=== PATIENT | male | born 1940 | race Caucasian/White ===

== ENCOUNTER 2021-03-13 21:28 | Emergency (ER) | payer OTHER, SELFPAY ==
[2021-03-13 21:29] VITALS: BP 162/68; PULSE 76; RESP 18; TEMP 36.2; O2SAT 99; BMI 30.4
--- NOTE | 2021-03-13 21:54 | EDS_ITS ---
HPI History of Present Illness Chief Complaint: Lower Extremity Injury Narrative Narrative: 80-year-old male presenting with left calf swelling. He states he does not have a history of DVT. He denies any trauma. He states he has not been bedridden or immobilized. He is not on anticoagulation. He denies any trauma. He is not having chest pain, shortness of breath. He denies fever or chills. He denies numbness or tingling. He does admit to pain when ambulating [facility] Medical History Heart attack Home Medications NK 03/13/21 [History Last Taken Unknown] Allergy/AdvReac Type Severity Reaction Status Date / Time No Known Allergies Allergy Verified 03/13/21 21:31 Surgical History Stented coronary artery Social History Smoking Status: Never smoker ROS ROS ED Constitutional Constitutional ED: Denies chills or fever(s) Eyes Eyes: Denies blurry vision or change in vision ENT ENT ED: Denies rhinorrhea or sore throat Cardiovascular Cardiovascular: Denies chest pain or palpitations Respiratory/Chest Respiratory/Chest: Denies cough or dyspnea Gastrointestinal Gastrointestinal: Denies abdominal pain or nausea Genitourinary Genitourinary ED: Denies dysuria or hematuria Musculoskeletal Musculoskeletal: Reports other Details: Left calf pain and swelling Integumentary Denies abscess or rash Neurologic Neurologic: Denies headache(s) or weakness EXAM Physical Exam Const Vital Signs: 03/13/21 21:29 Temperature 97.1 F L Temperature Source Temporal Pulse Rate 76 Respiratory Rate 18 Blood Pressure 162/68 H Blood Pressure Mean 99 Pulse Ox 99 Positive well nourished General Appearance ED: NAD HEENT normocephalic and atraumatic Resp normal respiratory effort and clear to auscultation bilaterally Cardio regular rate and regular rhythm Extremity Extremity Narrative: Left calf swelling. Mild erythema and warmth. Mildly tender to palpation. No crepitance. Left foot neurovascular intact prescription filled all 5 toes. Neuro oriented x3 Sensorium / Orientation: alert Psych mental status grossly normal Skin Skin Narrative: As described above MDM MDM MDM Narrative Medical decision making narrative: Patient presented with left calf pain. Does have some mild posterior left knee pain. There is some swelling in his region. There is no sign of cellulitis. I did obtain a DVT study which shows a popliteal cyst of the left knee measuring 5.6 cm. There is no DVT. Patient counseled on ice, elevation, compression. He will follow-up with his PCP. He states he is currently getting steps with a new PCP could be has his retired. He has the paperwork and will arrange this. Patient's over discharge. Impression: 1. Villegas's cyst left knee Radiography Diagnostic Testing: Clinical Impression(s) from Imaging Studies Venous Duplex 03/13/21 21:55 IMPRESSION: Popliteal cyst of the left knee region measures up to 5.6 cm with a few scattered foci. No deep vein thrombosis. Electronically Signed: Ar Muniz MD ([place]) at 22:36 EST , Service support , Discharge Plan Triage Chief Complaint: Lower Extremity Injury ED Provider: Saurabh Moore Dx/Rx/DC Orders Instructions: ED Villegas's Cyst Prescriptions: No Action NK RF: 0 Primary Care Provider: Care Physician,No Primary Referrals: Care Physician,No Primary [Primary Care Provider] - Disposition Disposition: Home, Self Care
--- NOTE | 2021-03-13 21:55 | US_ITS ---
EXAM: US DUPLEX LEFT LOWER EXTREMITY VEINS CLINICAL INDICATION: LT CALF PAIN AND SWELLING TECHNIQUE: Real-time duplex ultrasound scan of the left lower extremity veins integrating B-mode two-dimensional vascular structure, Doppler spectral analysis, color flow Doppler imaging and compression. This report was created using [employer] report GI-View technology. COMPARISON: None. FINDINGS: DEEP VEINS: Unremarkable. No DVT in the visualized common femoral, femoral, proximal deep femoral or popliteal veins. The veins demonstrate normal color flow, are normally compressible, with normal phasic flow and/or augmentation response. SUPERFICIAL VEINS: Unremarkable. No thrombus in the visualized great saphenous vein. SOFT TISSUES: Popliteal cyst of the left knee region measures up to 5.6 cm with a few scattered foci. US/Venous Duplex Imag/Limited/Uni IMPRESSION: Popliteal cyst of the left knee region measures up to 5.6 cm with a few scattered foci. No deep vein thrombosis. Electronically Signed: Ar Muniz MD ([place]) at 22:36 EST , Service support ,
[2021-03-13 23:20] VITALS: PULSE 77; RESP 18; O2SAT 98
== END 2021-03-13 23:20 | disposition home or self-care (01) ==
PROVIDERS: Emergency Provider Student in an Organized Health Care Education/Training Program
DX: M71.22 Synovial cyst of popliteal space [Baker], left knee (principal); I25.2 Old myocardial infarction; M79.89 Other specified soft tissue disorders
CPT/HCPCS: 93971; 99282